=== PATIENT | female | born 1995 | race Caucasian/White ===

== ENCOUNTER → 2018-03-14 | Outpatient (CLI) | payer MEDICAID ==
[~2018-03-14] MED LIST: ACET-1697 PO; AMOX500T2 PO; Acetaminophen PO; CEPH500C PO; CODE-54 PO; DCS100C PO; FAMO10TA71 PO; FLUT16SP22 NS; FRS325T PO; IBP600T1 PO; LORA-877 PO; NITR-65 PO; ONDA-42 SL; PNV1TABL67 PO; PREN-117 PO; RT-ALBUINH IH
--- NOTE | 2018-03-14 16:18 | Diagnostic Imaging Report ---
INDICATION: Anatomical survey. TECHNIQUE: Multiple real-time grayscale images were obtained over the gravid uterus. COMPARISON: None FINDINGS: Single intrauterine gestation in a cephalic presentation. heart rate 155 bpm. Normal-appearing amniotic fluid. Grade 1 placenta in the posterior location. No evidence of previa or subchorionic fluid collections. Normal appearing kidneys, bladder, stomach, four-chambered heart, three-vessel cord, spine and cord insertion are identified. Intracranial contents including the cerebellum are not well seen due to position and maternal body habitus. The cervical length is 4.7 cm and appears closed. Biometrical measurements are as follows: Biparietal 4.40 cm, age 19 weeks 3 days. Head circumference 16.03 cm, age 18 weeks 6 days. Abdominal circumference 12.53 cm, age 18 weeks 1 days. Femur length 2.77 cm, age 18 weeks 4 days. Sonographic estimate age: 18 weeks 6 days. Sonographic estimated date of delivery: 08/09/2018. Estimated Weight: 237 gm (+/- 35 gm). LMP percentile: 51%. heart rate: 155 beats per minute. number: 1 of 1. IMPRESSION: Unremarkable anatomic survey. Intracranial contents including the cerebellum are not well seen due to position and body habitus. Dictated by: Dictated on workstation # [id number]
== END ==
LOC: RAD 14:19
PROVIDERS: ATTEND Obstetrics & Gynecology
DX: Z36.89 Encounter for other specified antenatal screening (principal); Z3A.18 18 weeks gestation of pregnancy
CPT/HCPCS: 76805

== ENCOUNTER 2018-08-15 06:30 | Inpatient (IN) | payer MEDICAID ==
[~2018-08-15] VITALS: Ht 157.5 cm; Wt 119.5 kg
[2018-08-15] VITALS (35 sets, daily range): BP systolic 98–167; BP diastolic 2–106
--- NOTE | 2018-08-15 06:30 | NUR ---
KARO MAXWELL presented to unit via AMBULATORY from ED, accompanied by S/O AND FAMILY, with c/o INDUCTION. KARO MAXWELL weighed, gowned, voided, and to bed. EFHM and TOCO applied, VS taken. KARO MAXWELL oriented to bed controls, call light, TV, heat, and A/C controls. Pt up changing and supplying u/a. Assessments to follow by Day RN assuming care.
--- OUTSIDE RECORDS SUMMARY | 2018-08-15 06:42 | XMS REPORT | Continuity of Care Document ---
Author Organization Unknown Address Unknown Allergies Active Description Code Type Severity Reaction Onset Reported/Identified Relationship to Patient Clinical Status Yes diphenhydramine [id number] Drug Allergy Unknown N/A 06/27/2013 Yes Latex, Natural Rubber [id number] Drug Allergy Unknown N/A 06/27/2013 Yes Sulfa (Sulfonamide Antibiotics) [id number] Drug Allergy Unknown N/A 06/27/2013 Medications There is no data. Problems Date Dx Coded Attending Type Code Diagnosis Diagnosed By 06/27/2013 YVONNE HAAS DO Ot 590.80 PYELONEPHRITIS NOS 06/27/2013 YVONNE HAAS DO Ot 646.63 INFECTION-ANTEPARTUM 10/14/2013 MARTINA MAGUIRE MD Ot 787.01 NAUSEA WITH VOMITING 10/14/2013 MARTINA MAGUIRE MD Ot 789.04 ABDOMINAL PAIN, LEFT LOWER QUADRANT 11/25/2013 JATIN GALEANO DO Ot 599.0 URIN TRACT INFECTION NOS 11/25/2013 JATIN GALEANO DO Ot 643.93 VOMIT OF PG NOS-ANTEPART 11/25/2013 JATIN GALEANO DO Ot 646.63 INFECTION-ANTEPARTUM 11/25/2013 JATIN GALEANO DO Ot 787.03 VOMITING ALONE 06/11/2014 AMBER ELIAS DO Ot 623.5 NONINFECT VAG LEUKORRHEA 06/11/2014 AMBER ELIAS DO Ot 654.73 ABNORM VAGINA-ANTEPARTUM 06/12/2014 AMBER ELIAS DO Ot 623.5 NONINFECT VAG LEUKORRHEA 06/12/2014 AMBER ELIAS DO Ot 654.73 ABNORM VAGINA-ANTEPARTUM 07/30/2014 AMBER ELIAS DO Ot 285.1 AC POSTHEMORRHAG ANEMIA 07/30/2014 AMBER ELIAS DO Ot 648.22 ANEMIA-DELIVERED W P/P 07/30/2014 AMBER ELIAS DO Ot 664.21 DEL W 3 DEG LACERAT-DEL 07/30/2014 SELMAECH DO, AMBER S Ot V23.2 PREG W HX OF 07/30/2014 SELMAECH DO, AMBER S Ot V27.0 DELIVER-SINGLE LIVEBORN 11/01/2014 LONNIE MORGAN, SANDRA Shoemaker Ot 599.72 MICROSCOPIC HEMATURIA 11/01/2014 LONNIE MORGAN, SANDRA Shoemaker Ot 789.04 ABDOMINAL PAIN, LEFT LOWER QUADRANT 03/15/2018 FENECH DO, AMBER S Ot Z36.89 ENCOUNTER FOR OTHER SPECIFIED 03/15/2018 SELMAECH DO, AMBER S Ot Z3A.18 18 WEEKS GESTATION OF 03/15/2018 FENECH DO, AMBER S Ot Z36.89 ENCOUNTER FOR OTHER SPECIFIED 03/15/2018 FENECH DO, AMBER S Ot Z3A.18 18 WEEKS GESTATION OF 04/06/2018 FENECH DO, AMBER S Ot Z36.89 ENCOUNTER FOR OTHER SPECIFIED 04/06/2018 FENECH DO, AMBER S Ot Z3A.18 18 WEEKS GESTATION OF 05/10/2018 FENECH DO, AMBER S Ot Z36.89 ENCOUNTER FOR OTHER SPECIFIED 05/10/2018 FENECH DO, AMBER S Ot Z3A.18 18 WEEKS GESTATION OF Procedures Code Description Performed By Performed On 72.79 VACUUM EXTRACT DEL NEC 07/29/2014 75.62 REPAIR OB LAC RECT/ANUS 07/29/2014 Results There is no data. Encounters ACCT No. Visit Date/Time Discharge Status Pt. Type Provider Facility Loc./Unit Complaint [id number] 03/14/2018 14:19:00 03/14/2018 23:59:59 CLS Outpatient JADA INFANTE AMBER Hardin [facility] RAD [id number] 10/31/2014 21:29:00 11/01/2014 01:11:00 DIS Emergency SANDRA FLEMING MD [facility] ER L SIDE WAIST PAIN [id number] 07/28/2014 19:30:00 07/30/2014 12:50:00 DIS Inpatient SELMAMERCEDES AMBER Hardin [facility] LDRP LABOR [id number] 07/28/2014 17:53:00 07/28/2014 17:53:00 CAN Outpatient BRIAN CHANCE DO [facility] WSo [id number] 06/12/2014 15:30:00 06/12/2014 15:32:00 DIS Outpatient JADA INFANTEAMBER S [facility] WSo BETA METHADONE INJ [id number] 06/11/2014 15:01:00 06/11/2014 17:35:00 DIS Out[facility] RUPTURED MEMBRANE [id number] 11/25/2013 21:53:00 11/25/2013 23:44:00 DIS Emergency JATIN GALEANO DO [facility] ER VOMITING, CHILLS [id number] 10/13/2013 22:55:00 10/14/2013 00:29:00 DIS Emergency TING MORGAN, MARTINA Patel [facility] ER VOMITING [id number] 06/27/2013 02:25:00 06/27/2013 13:00:00 DIS Inpatient YVONNE HAAS DO [facility] 4TH PYELONEPHRITIS
--- NOTE | 2018-08-15 07:08 | NUR ---
monitors applied. admission paperwork completed. familiarized with room surroundings.
[2018-08-15] MEDS ORDERED: D5 LR IV SOLUTION 1,000 ML IV SCH (07:19)
[2018-08-15 07:29] LABS: BASOPHILS % (AUTO) 0 % (0-10); EOSINOPHILS # (AUTO) 0.1 10^3/uL (0.0-0.3); EOSINOPHILS % (AUTO) 1 % (0-10); HEMATOCRIT 37 % (35-52); HEMOGLOBIN 13.1 G/DL (11.5-16.0); LYMPHOCYTES # (AUTO) 3.1 X 10^3 (1.0-4.0); LYMPHOCYTES % (AUTO) 21 % (12-44); MEAN CORPUSCULAR HEMOGLOBIN 32 PG (25-34); MEAN CORPUSCULAR HGB CONC 35 G/DL (32-36); MEAN CORPUSCULAR VOLUME 92 FL (80-99); MEAN PLATELET VOLUME 10.6 FL (7.4-10.4); MONOCYTES # (AUTO) 1.3 X 10^3 (0.0-1.0); MONOCYTES % (AUTO) 8 % (0-12); NEUTROPHILS # (AUTO) 10.6 X 10^3 (1.8-7.8); NEUTROPHILS % (AUTO) 71 % (42-75); PLATELET COUNT 235 10^3/uL (130-400); RED CELL DISTRIBUTION WIDTH 12.8 % (10.0-14.5); WHITE BLOOD COUNT 15.1 10^3/uL (4.3-11.0)
[2018-08-15 07:38] LABS: BILIRUBIN,URINE NEGATIVE (NEGATIVE); CLARITY,URINE CLEAR; COLOR,URINE YELLOW; GLUCOSE, URINE (UA) NEGATIVE (NEGATIVE); KETONES,URINE NEGATIVE (NEGATIVE); LEUKOCYTE ESTERASE ,URINE 1+ (NEGATIVE); NITRITE,URINE NEGATIVE (NEGATIVE); PH,URINE 6.5 (5-9); PROTEIN,URINE NEGATIVE (NEGATIVE); UROBILINOGEN,URINE NORMAL (NORMAL)
[2018-08-15 07:49] LABS: BACTERIA,URINE FEW /HPF
[2018-08-15 07:54] LABS: BAND NEUTROPHILS 4 %; LYMPHOCYTES % (MANUAL) 23 %; MONOCYTES % (MANUAL) 8 %; NEUTROPHILS % (MANUAL) 65 %; RBC MORPH NORMAL
--- NOTE | 2018-08-15 08:13 | History & Physical-OB ---
OB - Chief Complaint & HPI Date/Time Date of Admission: Date of Admission: August 15, 2018 at 06:30 Date seen by a Provider: August 15, 2018 Time Seen by a Provider: 08:00 Chief Complaint/History OB-Reason for Admission/Chief: Induction of Labor Hx : 4 Hx Para: 1 Expected Date of Delivery: August 13, 2018 Gestational Age in Weeks: 40 Gestational Age in Days: 2 Indication for induction: post dates Admission Nurse Assessment Rev: Yes History of Labs B pos Antibody neg RI RPR NR HBsAg NR HIV NR GC neg GBS neg Allergies and Home Medications Allergies Coded Allergies: Latex, Natural Rubber (Unverified Allergy, Unknown, 06/27/13) Sulfa (Sulfonamide Antibiotics) (Unverified Allergy, Unknown, 06/27/13) diphenhydramine (Unverified Allergy, Unknown, 06/27/13) Home Medications No Active Prescriptions or Reported Meds Patient Home Medication List Home Medication List Reviewed: Yes OB - History Hx of Present Care: Yes Ultrasounds: Normal mid trimester US Obstetrical Complications: None Medical Complications: None Delivery History Hx Blood Disorders: No Adverse Rxn to Tranfusion: No Patient Past Medical History tobacco use Social History/Family History HIV/AIDS: No Sexually Transmitted Disease: No Immunizations Hepatitis A: No Hepatitis B: No Tetanus Booster (TDap): Unknown OB - Admission Exam Physical Exam HEENT: NCAT Heart: Rhythm Normal Lungs: Clear Abdomen: Gravid Extremities: Normal Reflexes: Normal Cervical Dilatation: 4cm Effacement: 75% Station: -1 Membranes: Intact Heart Rate: 130's Accelerations: Accelerations Present Decelerations: No Decelerations Short Term Variability: Present Prison Variability: Average (6-25) Contractions on Admission: 6-10 Minutes Apart Labs Laboratory Tests Test 08/15/18 06:50 08/15/18 07:30 Range/Units White Blood Count 15.1 H 4.3-11.0 10^3/uL Red Blood Count 4.05 L 4.35-5.85 10^6/uL Hemoglobin 13.1 11.5-16.0 G/DL Hematocrit 37 35-52 % Mean Corpuscular Volume 92 80-99 FL Mean Corpuscular Hemoglobin 32 25-34 PG Mean Corpuscular Hemoglobin Concent 35 32-36 G/DL Red Cell Distribution Width 12.8 10.0-14.5 % Platelet Count 235 130-400 10^3/uL Mean Platelet Volume 10.6 H 7.4-10.4 FL Neutrophils (%) (Auto) 71 42-75 % Lymphocytes (%) (Auto) 21 12-44 % Monocytes (%) (Auto) 8 0-12 % Eosinophils (%) (Auto) 1 0-10 % Basophils (%) (Auto) 0 0-10 % Neutrophils # (Auto) 10.6 H 1.8-7.8 X 10^3 Lymphocytes # (Auto) 3.1 1.0-4.0 X 10^3 Monocytes # (Auto) 1.3 H 0.0-1.0 X 10^3 Eosinophils # (Auto) 0.1 0.0-0.3 10^3/uL Basophils # (Auto) 0.0 0.0-0.1 10^3/uL Neutrophils % (Manual) 65 % Lymphocytes % (Manual) 23 % Monocytes % (Manual) 8 % Band Neutrophils 4 % Blood Morphology Comment NORMAL Urine Color YELLOW Urine Clarity CLEAR Urine pH 6.5 5-9 Urine Specific [place] 1.020 1.016-1.022 Urine Protein NEGATIVE NEGATIVE Urine Glucose (UA) NEGATIVE NEGATIVE Urine Ketones NEGATIVE NEGATIVE Urine Nitrite NEGATIVE NEGATIVE Urine Bilirubin NEGATIVE NEGATIVE Urine Urobilinogen NORMAL NORMAL MG/DL Urine Leukocyte Esterase 1+ H NEGATIVE Urine RBC (Auto) NEGATIVE NEGATIVE Urine RBC NONE /HPF Urine WBC 5-10 H /HPF Urine Squamous Epithelial Cells 5-10 /HPF Urine Crystals NONE /LPF Urine Bacteria FEW H /HPF Urine Casts NONE /LPF Urine Mucus NEGATIVE /LPF Urine Culture Indicated YES OB - Assessment/Plan/Diagnosis Assessment Assessment: induction of labor Admission Dx 23 yo @ 40.2 Postdates Late transfer of care GBS neg Admission Status: Inpatient Order (span 2 midnights) Reason for Inpatient Admission: Induction of labor at term Plan Plan: Induction Induction Method: per Pitocin Protocol AMBER ELIAS DO August 15, 2018 08:13
[2018-08-15] MEDS: OXYTOCIN/NORMAL SALINE 500 ML IV SCH ×2 (08:30→13:24)
[2018-08-15] MEDS ORDERED: HYDROmorphone 2 MG/ML VIAL (DILAUDID) IV NR (09:00)
[2018-08-15] MEDS ORDERED: SUFENTA 0.6MCG/ML BUPIVA 0.125 100 ML ONE (09:18)
[2018-08-15] MEDS ORDERED: LACTATED RINGERS 1,000 ML IV ONE ×2 (09:18→10:33)
--- NOTE | 2018-08-15 09:27 | NUR ---
anesthesia notified of pt's request for epidural placement
[2018-08-15] MEDS ORDERED: BUPIVACAINE 0.25% 30 ML (SENSORCAINE) VIAL ONE (09:38)
[2018-08-15] MEDS ORDERED: fentaNYL INJECTION 100 MCG/2 ML AMP ONE (09:38)
--- NOTE | 2018-08-15 09:46 | NUR ---
here for epidural placement. Procedure explained, consent reviewed and signed by anesthesia. Questions answered to patient's satisfaction. Time out taken to verify correct patient/procedure. 0950- Patient up to side of bed, assisted into sitting position. Betadine prep done x3 and sterile drape applied. 0957- Local done, see anesthesia record. 1014-Test dose given, see anesthesia record for drug and dosage. 1012-Epidural catheter secured in place. Epidural placement complete. 1017-Assisted back into bed, monitors adjusted. Epidural dosed, see anesthesia record. Epidural of Sufenta/Bupvicaine @12cc/hr stated per pump. Patient tolerated procedure well.
[2018-08-15] MEDS ORDERED: NALOXONE 0.4 MG/ML 1 ML (NARCAN) VIAL IV PRN (10:45)
[2018-08-15] MEDS ORDERED: ONDANSETRON 4 MG/2 ML (SDV) Z0FRAN IV PRN (10:45)
[2018-08-15] MEDS ORDERED: CATHETER FLUSH 10 ML SYR IV PRN (10:45)
[2018-08-15] MEDS ORDERED: EPIDURAL (SUFENTA 0.6MCG/ML BUPIVA 0.125%) 100 ML BAG EPI SCH (10:45)
[2018-08-15] MEDS ORDERED: LIDOCAINE/EPI 2% 1:200,00 (XYLOCAINE) 10 ML VIAL ONE (12:21)
[2018-08-15] MEDS ORDERED: OXYTOCIN/NORMAL SALINE 500 ML IV SCH (13:10)
--- NOTE | 2018-08-15 13:10 | OB Labor & Delivery Record ---
L&D History Date of Service Date of Service: August 15, 2018 History Expected Date of Delivery: August 13, 2018 Gestational Age in Weeks: 40 Hx : 4 Hx Para: 1 Complications Events: Routine care Operative Indications (Cesarea: N/A-Vaginal Delivery Intrapartal Events: None L&D Stage1 Stage One Onset of Labor - Date: August 15, 2018 Monitors and Tracing Monitor Mode: Internal Heart Rate: 130 Monitor Accelerations: Uniform Monitor Decelerations: Variable Station: -1 Correction Variability: Average (6-10) Short Term Variability: Present Presentation: Vertex Vital Signs VS - Last 72 Hours, by Label 08/15/18 08/15/18 08/15/18 08/15/18 07:08 07:45 08:15 08:30 Temp 95.7 Pulse 88 81 86 78 Resp 18 18 18 18 B/P (MAP) 122/82 (95) 122/81 (95) 125/76 (92) 130/83 (99) O2 Delivery Room Air Room Air Room Air Room Air 08/15/18 08/15/18 08/15/18 08/15/18 08:45 09:00 09:15 09:30 Pulse 77 90 85 88 Resp 18 18 18 18 B/P (MAP) 138/88 (105) 161/106 (124) 159/96 (117) 148/82 (104) O2 Delivery Room Air Room Air Room Air Room Air 08/15/18 09:45 Pulse 84 Resp 18 B/P (MAP) 167/81 (109) O2 Delivery Room Air Rupture of Membranes Spontaneous Ruture of Membrane: No Amniotic Membrane Rupture Time: 0759 Amniotic Membrane Fluid Desc.: Clear Vaginal Bleeding Description: Normal Show Induction/Anesthesia Epidural Cath Placement - Time: 1012 Progress/Notes AROM and pitocin augmentation used to a max dose of 4 mu/min L&D Stage2 Stage Two Stage II Date: August 15, 2018 Monitors and Tracing Monitor Mode: Internal Heart Rate: 130 Monitor Accelerations: Uniform Monitor Decelerations: Variable Correction Variability: Average (6-10) Short Term Variability: Present Position: Right Occiput Anterior Presentation: Vertex Cord Descript/Complications Cord Vessel Description: 3 Vessels Complications nuchal cord x 1 Delivery Type Delivery Method: Spontaneous Vaginal Anterior Shoulder: Right Episiotomy/Perineal Laceration Laceraction(s)/Extensions: Yes Episiotomy Description: Midline, Periurethral Extnsion/lac Degree (describe repair) repaired using 3-0 rapide in usual fashion Condition of Delivery 1 minute Comment: 8 5 minute Comment: 9 Notes .live male weight 7lbs 13 oz Condition of Infant Condition of : Living Exam: No Observed Abnormalities Resuscitation Resuscitation: N/A - Spontaneous Resp L&D Stage3 Stage Three Stage III Date: August 15, 2018 Pictocin Pitocin Administration mu/min: 4 Pitocin ml/hr: 4 Pitocin Administration Comment: pitocin increased wide open after delivery of placenta Placenta Delivery Placenta Delivery: Spontaneous Delivery Summary Summary Estimated blood loss (mL): 400 Attending at delivery: Amber Elias DO Condition of Delivery Examined: Cervix Examined, Uterus Explored Post Hemorrhage: No Condition of Mother stable Condition of Infant (s) stable AMBER ELIAS DO August 15, 2018 13:10
[2018-08-15] MEDS ORDERED: WITCH HAZEL(TUCKS) 40 EA JAR TOP PRN (13:15)
[2018-08-15] MEDS ORDERED: DIBUCAINE (NUPERCAINAL) 1% OINT 30 GM TOP PRN (13:15)
[2018-08-15] MEDS ORDERED: TETANUS,DIPTH,PERTUSS P/F (BOOSTRIX) 0.5 ML VIAL IM ONE (13:15)
[2018-08-15] MEDS ORDERED: MEASLES,MUMPS,RUBELLA 1 EA INJ SQ ONE (13:15)
[2018-08-15] MEDS ORDERED: BENZOCAINE/MENTHOL (DERMOPLAST) 56 ML CAN TP PRN (13:15)
[2018-08-15] MEDS ORDERED: CATHETER FLUSH 10 ML SYR IV SCH ×2 (14:00)
--- NOTE | 2018-08-15 15:15 | NUR ---
FFu/0. moderate rubra noted, approx baseball sized clot expressed. FFu/1. lt- moderate rubra noted. lorna-care offered. v-pad and panties in place. pt transferred to room 311 via w/c with this RN, infant and s/o @ side. familiarized with room surroundings. call light within reach.
[2018-08-15] MEDS: IBUPROFEN 600 MG (MOTRIN) TAB PO SCH ×2 (16:45→22:39)
--- NOTE | 2018-08-15 16:45 | NUR ---
assisted up to BR. tolerated well. +void noted. lorna-care offered. Dermaplast applied to site.
--- NOTE | 2018-08-15 19:18 | NUR ---
report given to Ketty RN
[2018-08-15] MEDS: DOCUSATE SODIUM 100 MG (COLACE) CAP PO SCH (20:22)
[2018-08-15] MEDS: HYDROcodone/APAP 5 MG/325 MG (LORTAB) TAB PO PRN (22:40)
[2018-08-16 00:40] VITALS: BP 126/74
[2018-08-16] MEDS: HYDROcodone/APAP 5 MG/325 MG (LORTAB) TAB PO PRN ×3 (02:49→15:11)
[2018-08-16 04:07] VITALS: BP 129/81
[2018-08-16] MEDS: IBUPROFEN 600 MG (MOTRIN) TAB PO SCH ×3 (04:07→15:09)
[2018-08-16 06:09] LABS: BASOPHILS % (AUTO) 0 % (0-10); EOSINOPHILS # (AUTO) 0.1 10^3/uL (0.0-0.3); EOSINOPHILS % (AUTO) 1 % (0-10); HEMATOCRIT 31 % (35-52); HEMOGLOBIN 10.7 G/DL (11.5-16.0); LYMPHOCYTES # (AUTO) 4.8 X 10^3 (1.0-4.0); LYMPHOCYTES % (AUTO) 31 % (12-44); MEAN CORPUSCULAR HEMOGLOBIN 32 PG (25-34); MEAN CORPUSCULAR HGB CONC 35 G/DL (32-36); MEAN CORPUSCULAR VOLUME 93 FL (80-99); MEAN PLATELET VOLUME 10.6 FL (7.4-10.4); MONOCYTES # (AUTO) 1.6 X 10^3 (0.0-1.0); MONOCYTES % (AUTO) 10 % (0-12); NEUTROPHILS # (AUTO) 9.2 X 10^3 (1.8-7.8); NEUTROPHILS % (AUTO) 59 % (42-75); PLATELET COUNT 200 10^3/uL (130-400); RED CELL DISTRIBUTION WIDTH 12.6 % (10.0-14.5); WHITE BLOOD COUNT 15.7 10^3/uL (4.3-11.0)
[2018-08-16] MEDS ORDERED: PRENATAL VITAMIN 1 EA TAB PO SCH (07:00)
--- NOTE | 2018-08-16 07:18 | Postpartum Progress Note ---
Note Note Day # 1 Subjective: Patient is without complaints. Ambulating, voiding. Tolerating a regular diet without nausea or vomiting. Normal lochia. Pain is well controlled with oral pain medications. Objective: Physical Exam: General - Alert and oriented, no apparent distress Abdomen - Soft, appropriately tender to palpation, non-distended, fundus firm at umbilicus Extremities - no edema, negative Irma's bilaterally Assessment: PPD 1 NVD Acute blood loss anemia Plan: Routine care. Encourage breast feeding. Encourage ambulation. Ferrous sulfate supplementation. Plan for discharge today Vitals - Labs Vital Signs - I&O Vital Signs Date Time Temp Pulse Resp B/P (MAP) Pulse Ox O2 Delivery O2 Flow Rate FiO2 08/16/18 04:07 98.6 92 18 129/81 (97) 98 Room Air 08/16/18 00:40 98.3 84 18 126/74 (91) 97 Room Air 08/15/18 20:23 98.5 80 18 114/72 (86) 97 Room Air 08/15/18 15:00 76 18 121/59 (79) Room Air 08/15/18 14:45 70 18 112/53 (72) Room Air 08/15/18 14:30 74 18 118/68 (85) Room Air 08/15/18 14:20 77 18 114/62 (79) Room Air 08/15/18 14:00 76 18 138/69 (92) Room Air 08/15/18 13:45 76 18 138/65 (89) Room Air 08/15/18 13:15 93 18 138/81 (100) Room Air 08/15/18 13:00 114 18 103/78 (86) Room Air 08/15/18 12:45 86 18 127/73 (91) Room Air 08/15/18 12:30 18 Non Rebreather 10.00 08/15/18 12:15 71 18 115/71 (86) 97 Room Air 08/15/18 12:00 74 18 121/71 (88) 97 Room Air 08/15/18 11:45 76 18 125/66 (85) 98 Room Air 08/15/18 11:30 77 18 127/75 (92) 98 Room Air 08/15/18 11:15 78 18 125/58 (80) 95 Room Air 08/15/18 11:00 84 18 104/71 (82) 95 Room Air 08/15/18 10:45 67 18 101/59 (73) 95 Room Air 08/15/18 10:40 62 18 98/53 (68) 96 Room Air 08/15/18 10:30 69 18 108/51 (70) 97 Room Air 08/15/18 10:25 72 18 109/60 (76) 97 Room Air 08/15/18 10:20 84 18 117/66 (83) 99 Room Air 08/15/18 10:15 95.7 85 18 155/82 (106) 97 Room Air 08/15/18 10:10 78 18 158/96 (116) 99 Room Air 08/15/18 10:05 80 18 146/86 (106) 97 Room Air 08/15/18 10:00 82 18 165/82 (109) 97 Room Air 08/15/18 09:55 80 18 153/87 (109) 98 Room Air 08/15/18 09:45 84 18 167/81 (109) Room Air 08/15/18 09:30 88 18 148/82 (104) Room Air 08/15/18 09:15 85 18 159/96 (117) Room Air 08/15/18 09:00 90 18 161/106 (124) Room Air 08/15/18 08:45 77 18 138/88 (105) Room Air 08/15/18 08:30 78 18 130/83 (99) Room Air 08/15/18 08:15 86 18 125/76 (92) Room Air 08/15/18 07:45 81 18 122/81 (95) Room Air I & O 08/16/18 07:00 Intake Total 2000 ml Balance 2000 ml Labs Laboratory Tests 08/15/18 07:30: Urine Color YELLOW, Urine Clarity CLEAR, Urine pH 6.5, Urine Specific [place] 1.020, Urine Protein NEGATIVE, Urine Glucose (UA) NEGATIVE, Urine Ketones NEGATIVE, Urine Nitrite NEGATIVE, Urine Bilirubin NEGATIVE, Urine Urobilinogen NORMAL, Urine Leukocyte Esterase 1+H, Urine RBC (Auto) NEGATIVE, Urine RBC NONE, Urine WBC 5-10H, Urine Squamous Epithelial Cells 5-10, Urine Crystals NONE, Urine Bacteria FEWH, Urine Casts NONE, Urine Mucus NEGATIVE, Urine Culture Indicated YES 08/16/18 05:53: White Blood Count 15.7H, Red Blood Count 3.33L, Hemoglobin 10.7L, Hematocrit 31L , Mean Corpuscular Volume 93, Mean Corpuscular Hemoglobin 32, Mean Corpuscular Hemoglobin Concent 35, Red Cell Distribution Width 12.6, Platelet Count 200, Mean Platelet Volume 10.6H, Neutrophils (%) (Auto) 59, Lymphocytes (%) (Auto) 31, Monocytes (%) (Auto) 10, Eosinophils (%) (Auto) 1, Basophils (%) (Auto) 0, Neutrophils # (Auto) 9.2H, Lymphocytes # (Auto) 4.8H, Monocytes # (Auto) 1.6H, Eosinophils # (Auto) 0.1, Basophils # (Auto) 0.0 AMBER ELIAS DO August 16, 2018 07:18
--- NOTE | 2018-08-16 07:19 | Discharge Inst-Women's Service ---
Discharge Inst-Women's Serv Depart Medication/Instructions New, Converted or Re-Newed RX: RX on Chart Final Diagnosis PPD 1 NVD Consults/Follow Up Additional Follow Up: Yes Orders/Referrals Dr. Elias in 6 weeks Activity Activity: Activity as Tolerated Driving Instructions: No Driving for 1 Week NO SMOKING: NO SMOKING Nothing Inside Vagina: No Douching, No [place], No Tampons Diet Discharge Diet: No Restrictions Symptoms to Report to : Bleeding Excessive, Pain Increased, Fever Over 101 Degrees F, Vaginal Bleeding Increase, Questions/Concerns For Any Problems or Questions: Contact Your Physician AMBER ELIAS DO August 16, 2018 07:19
[2018-08-16] MEDS ORDERED: Benzocaine/Menthol TP (07:21)
[2018-08-16] MEDS ORDERED: DIBU30OI TOP (07:21)
[2018-08-16] MEDS ORDERED: IBUP-844 PO (07:21)
[2018-08-16] MEDS ORDERED: ACHD5005 PO (07:21)
[2018-08-16] MEDS ORDERED: FERR325T18 PO (07:21)
[2018-08-16] MEDS ORDERED: FERROUS SULF 325 MG (IRON) TAB PO SCH (08:00)
[2018-08-16 09:00] VITALS: BP 129/79
--- NOTE | 2018-08-16 09:15 | NUR ---
A.M. ASSESSMENT COMPLETED. VSS. WHEN ENTERED ROOM.
[2018-08-16] MEDS ORDERED: TETANUS,DIPTH,PERTUSS P/F (BOOSTRIX) 0.5 ML VIAL IM ONE (09:23)
[2018-08-16] MEDS: DOCUSATE SODIUM 100 MG (COLACE) CAP PO SCH (09:30)
--- NOTE | 2018-08-16 09:30 | NUR ---
ADAN 1 TAB P.O. FOR C/O ABD CRAMPING AND SORE BOTTOM.
--- NOTE | 2018-08-16 09:35 | NUR ---
TDAP GIVEN IM IN LEFT DELTOID.
--- NOTE | 2018-08-16 12:30 | NUR ---
CONTINUES TO DO WELL. OFFERS NO COMPLAINTS. CARING FOR IN ROOM.
--- NOTE | 2018-08-16 13:22 | Anesthesia-Regional Post-Op ---
Regional Patient Condition Mental Status: Alert, Oriented x3 Circulation: Same as Pre-Op Headache: Absent Sensation: Full Recovery Motor Block: Absent Post Op Complications Complications None Follow Up Care/Instructions Patient Instructions None needed. Anesthesia/Patient Condition Patient is doing well, no complaints, stable vital signs, no apparent adverse anesthesia problems. No complications reported per nursing. SEBASTIÁN MEANS CRNA August 16, 2018 13:22
--- NOTE | 2018-08-16 14:00 | NUR ---
RESTING WHEN ENTERED ROOM. IN NURSERY FOR LABS.
[2018-08-16 14:01] VITALS: BP 125/78
--- NOTE | 2018-08-16 15:30 | NUR ---
EATING STORK MEAL. CARING FOR INFANT IN ROOM. GOOD INTERACTION NOTED.
--- NOTE | 2018-08-16 15:55 | NUR ---
DISCHARGE INSTRUCTIONS REVIEWED WITH COPY TO PT. STATES UNDERSTANDING OF ALL INSTRUCTIONS AND NEED TO F/U NEEDED AND SCHEDULED. RXS GIVEN.
[2018-08-16 16:45] VITALS: BP 125/78
--- NOTE | 2018-08-16 16:45 | NUR ---
DISMISSED FROM [facility] VIA W/C WITH TO FAMILY CAR IN STABLE CONDITION ACC BY Amrita AND ANA SWARTZ.
== END 2018-08-16 16:45 | disposition home or self-care (01) | DRG 806 ==
LOC: LDRP 06:30
PROVIDERS: ADMIT Obstetrics & Gynecology; ATTEND Obstetrics & Gynecology
PROC: 10E0XZZ Delivery of Products of Conception, External Approach (ICD-10-PCS; principal; 2018-08-15)
PROC: 0W8NXZZ Division of Female Perineum, External Approach (ICD-10-PCS; 2018-08-15)
DX: O48.0 Post-term pregnancy (principal); O90.81 Anemia of the puerperium; D62 Acute posthemorrhagic anemia; O69.81X0 Labor and delivery complicated by cord around neck, without compression, not applicable or unspecified; O99.333 Smoking (tobacco) complicating pregnancy, third trimester; Z3A.40 40 weeks gestation of pregnancy; Z37.0 Single live birth
CPT/HCPCS: 36415; 81000; 85007; 85025; 85027; 86850; 86900; 86901; 87088; 90715

== ENCOUNTER → 2019-05-29 | Outpatient (CLI) | payer MEDICAID ==
[~2019-05-29] MED LIST changes: +ACHD5005 PO; +Benzocaine/Menthol TP; +DIBU30OI TOP; +FERR325T18 PO; +IBUP-844 PO
--- NOTE | 2019-05-29 12:46 | Diagnostic Imaging Report ---
INDICATION: survey. TECHNIQUE: Multiple real-time grayscale images were obtained over the gravid uterus. COMPARISON: None COMPARISON: There are no prior studies available for comparison. FINDINGS: There is a single live fetus in breech presentation. motion was noted and and a rate of 144 BPM was recorded. There are no abnormalities identified but the four-chamber heart view was less than optimal. The placenta is anterior and there is no previa. The amniotic fluid volume is within normal limits. The growth parameters are fairly uniform. The cervix was identified and measures 3.9 cm in length. IMPRESSION: 1. There is a single live fetus approximately 20 weeks 4 days gestation +/- 1.5 weeks. The EDC is October 12, 2019. 2. There were no abnormalities identified but the four-chamber heart view is less than optimal. A short-term (4 to 6 week) follow-up exam would be recommended for further study. 3. The growth parameters are fairly uniform. Biometrical measurements are as follows: Biparietal 4.79 cm, age 20 weeks 4 days. Head circumference 18.31 cm, age 20 weeks 5 days. Abdominal circumference 15.44 cm, age 20 weeks 5 days. Femur length 3.27 cm, age 20 weeks 2 days. Sonographic estimate age: 20 weeks 4 days. Sonographic estimated date of delivery: 10/12/2019. Estimated Weight: 355 gm (+/- 52 gm). LMP percentile: 64%. heart rate: 144 beats per minute. number: 1 of 1. Dictated by: Dictated on workstation # [id number]
== END ==
LOC: RAD 09:23
PROVIDERS: ATTEND Obstetrics & Gynecology
DX: Z36.89 Encounter for other specified antenatal screening (principal); Z3A.20 20 weeks gestation of pregnancy
CPT/HCPCS: 76805